=== PATIENT | male | born 1960 | race African-American/Black ===

== ENCOUNTER 2017-07-02 10:12 | Emergency (ER) | payer OTHER, MEDICAID ==
[~2017-07-02] VITALS: Ht 165.1 cm; Wt 77.0 kg
[2017-07-02] MEDS ORDERED: QUET200T PO (11:20)
[2017-07-02] MEDS ORDERED: ATEN50TA PO (11:20)
[2017-07-02] MEDS ORDERED: OXYCODONE HCL/ACETAMINOPHEN 5/325MG TABLET PO ONE (13:15)
[2017-07-02 15:01] VITALS: BP 185/118
== END 2017-07-02 15:51 | disposition home or self-care (01) ==
LOC: ER 10:12
DX: S70.02XA Contusion of left hip, initial encounter (principal); M16.11 Unilateral primary osteoarthritis, right hip; I10 Essential (primary) hypertension; F14.10 Cocaine abuse, uncomplicated; V03.99XA Pedestrian with other conveyance injured in collision with car, pick-up truck or van, unspecified whether traffic or nontraffic accident, initial encounter; Y93.55 Activity, bike riding; Y92.89 Other specified places as the place of occurrence of the external cause
CPT/HCPCS: 73502; 81025; 99284

== ENCOUNTER 2020-05-05 12:49 | Emergency (ER) | payer OTHER, MEDICAID ==
[~2020-05-05] VITALS: Ht 170.2 cm; Wt 85.0 kg
[~2020-05-05 12:49] MED LIST: ATEN50TA PO; QUET200T PO
[2020-05-05] MEDS ORDERED: ASPIRIN 81MG TABLET PO ONE (13:30)
[2020-05-05] MEDS: NITROGLYCERIN 0.4MG TABLET SL SL PRN ×3 (13:50→14:41)
[2020-05-05 13:59] LABS: CHLORIDE 102 mEq/L (98-107)
[2020-05-05 14:07] LABS: BASOPHILS % 0.7 % (0.0-2.0); EOSINOPHILS % 3.6 % (0.0-5.0); HEMATOCRIT. 44.4 % (42.0-52.0); HEMOGLOBIN. 15.6 g/dL (14.0-18.0); LYMPHOCYTES % 23.2 % (20.0-50.0); MEAN CORPUSCULAR HEMOGLOBIN 31.4 pg (28.0-32.0); MEAN CORPUSCULAR VOLUME 89.7 fL (80.0-94.0); MONOCYTES % 9.5 % (2.0-8.0); PLATELET 282 x1000/uL (130-400); RED BLOOD CELL COUNT 4.95 mill/uL (4.7-6.1); RED CELL DISTRIBUTION WIDTH 13.2 % (11.6-14.6)
[2020-05-05] MEDS ORDERED: MAGNESIUM/ALUMINUM HYDROXIDE/SIMETHICONE 30ML UDC PO ONE (14:45)
[2020-05-05 15:46] VITALS: BP 145/89
[2020-05-05] MEDS ORDERED: NITROGLYCERIN OINT 1GM/INCH UDPKT TD ONE (16:00)
== END 2020-05-05 17:00 | disposition short-term general hospital (02) ==
LOC: ER 12:49
DX: R07.89 Other chest pain (principal); R10.13 Epigastric pain; I10 Essential (primary) hypertension; E78.00 Pure hypercholesterolemia, unspecified; Z96.659 Presence of unspecified artificial knee joint
CPT/HCPCS: 36415; 71045; 80053; 83880; 84484; 85025; 99284

== ENCOUNTER 2021-07-05 19:48 | Emergency (ER) | payer OTHER, MEDICAID ==
[~2021-07-05] VITALS: Ht 167.6 cm; Wt 82.0 kg
[2021-07-06] MEDS ORDERED: KETOROLAC 60MG/2ML VIAL IM ONE (00:15)
[2021-07-06 04:00] VITALS: BP 152/95
[2021-07-06] MEDS ORDERED: IBUP-2029 MT (04:12)
== END 2021-07-06 04:30 | disposition home or self-care (01) ==
LOC: ER 19:48
DX: S20.212A Contusion of left front wall of thorax, initial encounter (principal); S40.011A Contusion of right shoulder, initial encounter; I10 Essential (primary) hypertension; Z96.659 Presence of unspecified artificial knee joint; V43.52XA Car driver injured in collision with other type car in traffic accident, initial encounter; Y93.89 Activity, other specified; Y92.488 Other paved roadways as the place of occurrence of the external cause
CPT/HCPCS: 71045; 71250; 73030; 73060; 93005; 96372; 99285; J1885

== ENCOUNTER 2024-04-15 01:24 | Emergency (ER) | payer OTHER, MEDICAID ==
[~2024-04-15] VITALS: Ht 180.3 cm; Wt 82.0 kg
[~2024-04-15 01:24] MED LIST changes: +AMLO10TA80 PO; +ASPI-1406 PO; +ATEN100T PO; -ATEN50TA PO; +CLOP-31 PO; +CRES10 PO; +PANT20TA17 PO; -QUET200T PO; +QUET400T12 PO; +T3 PO; +VERA120T90 PO
[2024-04-15 01:30] VITALS: O2SAT 95
[2024-04-15 02:31] LABS: BASOPHILS % 0.7 % (0.0-2.0); EOSINOPHILS % 1.4 % (0.0-5.0); HEMATOCRIT. 42.5 % (42.0-52.0); HEMOGLOBIN. 14.4 g/dL (14.0-18.0); LYMPHOCYTES % 12.4 % (20.0-50.0); MEAN CORPUSCULAR HEMOGLOBIN 30.8 pg (28.0-32.0); MEAN CORPUSCULAR HGB CONC 33.8 g/dL (31.0-37.0); MEAN CORPUSCULAR VOLUME 91.2 fL (80.0-94.0); MEAN PLATELET VOLUME 8.2 fl (7.4-10.4); MONOCYTES % 6.4 % (2.0-8.0); NEUTROPHILS % 79.1 % (40.0-76.0); PLATELET 363 x1000/uL (130-400); RED BLOOD CELL COUNT 4.66 mill/uL (4.7-6.1); RED CELL DISTRIBUTION WIDTH 13.8 % (11.6-14.6); WHITE BLOOD COUNT 11.5 x1000/uL (4.5-11.0)
[2024-04-15 02:36] LABS: CHLORIDE 104 mEq/L (98-107); POTASSIUM 3.7 mEq/L (3.5-5.1); SODIUM 138 mEq/L (136-145)
[2024-04-15 02:37] LABS: CALCIUM 8.8 mg/dL (8.7-10.4); CARBON DIOXIDE 26 mEq/L (21-32)
[2024-04-15 02:41] LABS: INR 0.9; PROTHROMBIN TIME 10.3 sec (9.6-11.0)
[2024-04-15 02:42] LABS: CREATININE 1.6 mg/dL (0.6-1.3); GLUCOSE 132 mg/dL (70-105); UREA NITROGEN BLOOD 13 mg/dL (9-23)
[2024-04-15] MEDS: ONDANSETRON HCL 4MG/2ML INJ IV NR (02:42)
[2024-04-15 02:43] LABS: TROPONIN I HIGH SENSITIVITY 5 ng/L (3.0-53)
[2024-04-15] MEDS: IOHEXOL-350 100 ML BOTTLE ONE (03:28)
[2024-04-15 03:38] LABS: ETHANOL BLOOD < 10 mg/dL (<10)
[2024-04-15] MEDS: ASPIRIN 325MG TABLET PO ONE (04:15)
[2024-04-15 06:19] VITALS: BP 126/81; PULSE 86; RESP 13; TEMP 98.1
== END 2024-04-15 06:31 | disposition short-term general hospital (02) ==
LOC: ER 01:24 → EDBEDREQ 05:46 → CANBEDREQ 05:51 → ER 06:31
DX: I63.9 Cerebral infarction, unspecified (principal); I10 Essential (primary) hypertension; E78.00 Pure hypercholesterolemia, unspecified; F14.10 Cocaine abuse, uncomplicated; Z79.899 Other long term (current) drug therapy; Z79.82 Long term (current) use of aspirin; Z86.73 Personal history of transient ischemic attack (TIA), and cerebral infarction without residual deficits
CPT/HCPCS: 80048; 80320; 83605; 85025; 85610; 84484; 36415; 71045; 70496; 70498; 70450; 93005; 96374; 99291; Q9967; J2405; G0480

== ENCOUNTER 2024-06-03 06:44 | Emergency (ER) | payer OTHER, MEDICAID ==
[~2024-06-03] VITALS: Ht 177.8 cm; Wt 85.0 kg
[2024-06-03 06:46] VITALS: O2SAT 98
[2024-06-03 07:18] LABS: BASOPHILS % 0.4 % (0.0-2.0); EOSINOPHILS % 3.3 % (0.0-5.0); HEMATOCRIT. 46.6 % (42.0-52.0); HEMOGLOBIN. 15.7 g/dL (14.0-18.0); LYMPHOCYTES % 12.8 % (20.0-50.0); MEAN CORPUSCULAR HEMOGLOBIN 30.9 pg (28.0-32.0); MEAN CORPUSCULAR HGB CONC 33.7 g/dL (31.0-37.0); MEAN CORPUSCULAR VOLUME 91.7 fL (80.0-94.0); MEAN PLATELET VOLUME 8.2 fl (7.4-10.4); MONOCYTES % 7.8 % (2.0-8.0); NEUTROPHILS % 75.7 % (40.0-76.0); PLATELET 372 x1000/uL (130-400); RED BLOOD CELL COUNT 5.08 mill/uL (4.7-6.1); RED CELL DISTRIBUTION WIDTH 13.7 % (11.6-14.6); WHITE BLOOD COUNT 10.6 x1000/uL (4.5-11.0)
[2024-06-03 07:21] LABS: POTASSIUM 3.3 mEq/L (3.5-5.1)
[2024-06-03 07:22] LABS: CALCIUM 9.6 mg/dL (8.7-10.4)
[2024-06-03 07:27] LABS: CREATININE 1.5 mg/dL (0.6-1.3)
[2024-06-03] MEDS: KETOROLAC 30MG/ML VIAL IV STA (07:42)
[2024-06-03] MEDS: MORPHINE SULFATE 4 MG/ML INJ (FOR IV/IM USE) IV ONE (08:20)
[2024-06-03] MEDS: FLUTICASONE PROPIONATE 50MCG/SPRAY BOTTLE BOTHNSTRLS STA (10:10)
[2024-06-03 10:20] VITALS: BP 118/80; PULSE 69; RESP 16; TEMP 36.50292; O2SAT 98
[2024-06-15] MEDS ORDERED: FLUT15.844 BOTHNSTRLS (06:12)
== END 2024-06-03 10:46 | disposition short-term general hospital (02) ==
LOC: ER 06:53 → CANBEDREQ 09:17 → ER 10:46
DX: J32.9 Chronic sinusitis, unspecified (principal); M79.18 Myalgia, other site; I10 Essential (primary) hypertension; F14.90 Cocaine use, unspecified, uncomplicated; Z86.73 Personal history of transient ischemic attack (TIA), and cerebral infarction without residual deficits; Z79.899 Other long term (current) drug therapy
CPT/HCPCS: 99285; 96374; 96375; 80048; 85025; 36415; J1885; J2270; C1893

== ENCOUNTER 2024-06-08 06:37 | Emergency (ER) | payer OTHER, MEDICAID ==
[~2024-06-08] VITALS: Ht 172.7 cm; Wt 73.0 kg
[2024-06-08 06:38] VITALS: TEMP 98.8; O2SAT 95
[2024-06-08] MEDS: IBUPROFEN 600MG TABLET PO ONE (06:45)
[2024-06-08] MEDS: HYDROCODONE/ACETAMINOPHEN 5/325MG TABLET PO ONE (09:55)
[2024-06-08 11:26] VITALS: BP 148/84; PULSE 78; RESP 16; O2SAT 99
[2024-06-08] MEDS ORDERED: NAPR-681 MT (21:20)
[2024-06-15] MEDS ORDERED: FLUT15.844 BOTHNSTRLS (06:12)
== END 2024-06-08 12:21 | disposition home or self-care (01) ==
LOC: ER 06:37
DX: S40.012A Contusion of left shoulder, initial encounter (principal); S70.02XA Contusion of left hip, initial encounter; I10 Essential (primary) hypertension; Z86.73 Personal history of transient ischemic attack (TIA), and cerebral infarction without residual deficits; W18.39XA Other fall on same level, initial encounter; Y93.89 Activity, other specified; Y92.89 Other specified places as the place of occurrence of the external cause; Y99.8 Other external cause status
CPT/HCPCS: 71045; 73030; 73502; 99284

== ENCOUNTER 2024-06-08 20:34 | Emergency (ER) | payer MEDICAID, OTHER ==
[~2024-06-08] VITALS: Ht 177.8 cm; Wt 80.0 kg
[2024-06-08 20:41] VITALS: O2SAT 99
[2024-06-08] MEDS ORDERED: NAPR-681 MT (21:20)
[2024-06-08] MEDS: KETOROLAC 15MG/ML VIAL IM ONE (22:11)
[2024-06-09] MEDS: HYDROCHLOROTHIAZIDE 25MG TABLET PO ONE (00:42)
[2024-06-09] MEDS: HYDRALAZINE 20MG/ML VIAL IV ONE (01:46)
[2024-06-09 05:57] VITALS: BP 157/104; PULSE 107; RESP 16; TEMP 36.78072; O2SAT 97
[2024-06-15] MEDS ORDERED: FLUT15.844 BOTHNSTRLS (06:12)
== END 2024-06-09 05:58 | disposition home or self-care (01) ==
LOC: ER 20:34
DX: M25.552 Pain in left hip (principal); I10 Essential (primary) hypertension; Z86.73 Personal history of transient ischemic attack (TIA), and cerebral infarction without residual deficits; Z79.899 Other long term (current) drug therapy
CPT/HCPCS: 99285; 96372; 96374; J1885; J0360

== ENCOUNTER 2024-06-30 14:02 | Emergency (ER) | payer MEDICAID, MEDICARE, OTHER ==
[~2024-06-30] VITALS: Ht 170.2 cm; Wt 72.6 kg
[~2024-06-30 14:02] MED LIST changes: +FLUT15.844 BOTHNSTRLS; +NAPR-681 MT
[2024-06-30 14:11] VITALS: O2SAT 97
[2024-06-30] MEDS: KETOROLAC 30MG/ML VIAL IM ONE (15:31)
[2024-06-30] MEDS: KETOROLAC 15MG/ML VIAL IV ONE (15:34)
[2024-06-30] MEDS: HYDROCODONE/ACETAMINOPHEN 7.5/325MG TABLET PO ONE (16:02)
[2024-06-30 21:39] VITALS: BP 148/88; PULSE 77; RESP 13; TEMP 36.66960; O2SAT 97
== END 2024-06-30 21:50 | disposition home or self-care (01) ==
LOC: ER 14:59
DX: S40.012A Contusion of left shoulder, initial encounter (principal); I10 Essential (primary) hypertension; E78.00 Pure hypercholesterolemia, unspecified; R51.9 Headache, unspecified; Z79.899 Other long term (current) drug therapy; Z79.82 Long term (current) use of aspirin; Z86.73 Personal history of transient ischemic attack (TIA), and cerebral infarction without residual deficits; Z98.890 Other specified postprocedural states; W18.2XXA Fall in (into) shower or empty bathtub, initial encounter; Y93.89 Activity, other specified; Y92.89 Other specified places as the place of occurrence of the external cause; Y99.8 Other external cause status
CPT/HCPCS: 73502; 73030; 70450; 72125; 96374; 99285; J1885; Z7610

== ENCOUNTER 2024-12-13 14:17 | Emergency (ER) | payer OTHER, MEDICAID ==
[~2024-12-13] VITALS: Ht 170.2 cm; Wt 75.0 kg
[~2024-12-13 14:17] MED LIST changes: +KEPP500 MT
[2024-12-13 14:28] VITALS: TEMP 36.8; O2SAT 100
[2024-12-13] MEDS ORDERED: HYDROCODONE/ACETAMINOPHEN 5/325MG TABLET PO ONE (16:45)
[2024-12-13 19:39] VITALS: O2SAT 98
[2024-12-13 20:33] VITALS: BP 153/80; PULSE 72; RESP 14
[2024-12-13] MEDS: HYDROCODONE/ACETAMINOPHEN 5/325MG TABLET PO NR (20:33)
[2024-12-13 20:58] LABS: BASOPHILS % 0.7 % (0.0-2.0); EOSINOPHILS % 2.8 % (0.0-5.0); HEMATOCRIT. 43.4 % (42.0-52.0); HEMOGLOBIN. 14.7 g/dL (14.0-18.0); LYMPHOCYTES % 16.6 % (20.0-50.0); MEAN CORPUSCULAR HEMOGLOBIN 30.5 pg (28.0-32.0); MEAN CORPUSCULAR HGB CONC 33.9 g/dL (31.0-37.0); MEAN CORPUSCULAR VOLUME 90.2 fL (80.0-94.0); MEAN PLATELET VOLUME 7.9 fl (7.4-10.4); MONOCYTES % 8.4 % (2.0-8.0); NEUTROPHILS % 71.5 % (40.0-76.0); PLATELET 466 x1000/uL (130-400); RED BLOOD CELL COUNT 4.82 mill/uL (4.7-6.1); RED CELL DISTRIBUTION WIDTH 13.2 % (11.6-14.6); WHITE BLOOD COUNT 11.4 x1000/uL (4.5-11.0)
[2024-12-13 21:07] LABS: CARBON DIOXIDE 26 mEq/L (21-32); CHLORIDE 102 mEq/L (98-107); POTASSIUM 4.2 mEq/L (3.5-5.1); SODIUM 137 mEq/L (136-145)
[2024-12-13 21:08] LABS: CALCIUM 9.3 mg/dL (8.7-10.4)
[2024-12-13 21:13] LABS: CREATININE 1.2 mg/dL (0.6-1.3); GLUCOSE 152 mg/dL (70-105); TROPONIN I HIGH SENSITIVITY 4 ng/L (3.0-53); UREA NITROGEN BLOOD 14 mg/dL (9-23)
[2024-12-13 21:14] LABS: ALANINE AMINOTRANSFERASE 48 IU/L (10-49); ASPARTATE AMINOTRANSFERASE 29 IU/L (<34)
[2024-12-13 21:15] LABS: ALBUMIN 4.1 g/dL (3.2-4.8); PROTEIN TOTAL 7.3 g/dL (6.0-8.3)
[2024-12-13] MEDS ORDERED: HYDR-4001 MT (21:35)
[2024-12-13] MEDS ORDERED: ACET-2708 MT (21:35)
== END 2024-12-13 23:13 | disposition home or self-care (01) ==
LOC: ER 14:44
DX: M25.552 Pain in left hip (principal); E78.00 Pure hypercholesterolemia, unspecified; I10 Essential (primary) hypertension; Z86.73 Personal history of transient ischemic attack (TIA), and cerebral infarction without residual deficits; Z79.899 Other long term (current) drug therapy; Z96.641 Presence of right artificial hip joint; Z79.82 Long term (current) use of aspirin; Z79.1 Long term (current) use of non-steroidal anti-inflammatories (NSAID); Z79.02 Long term (current) use of antithrombotics/antiplatelets; W06.XXXA Fall from bed, initial encounter; Y93.89 Activity, other specified; Y92.89 Other specified places as the place of occurrence of the external cause; Y99.8 Other external cause status
CPT/HCPCS: 36415; 71045; 73502; 80053; 84484; 85025; 93005; 99285

== ENCOUNTER 2025-01-07 10:24 | Emergency (ER) | payer OTHER, MEDICAID ==
[~2025-01-07] VITALS: Ht 160 cm; Wt 82.0 kg
[~2025-01-07 10:24] MED LIST changes: +ACET-2708 MT; +HYDR-4001 MT
[2025-01-07 10:30] VITALS: O2SAT 99
[2025-01-07] MEDS: LABETALOL 5MG/ML 4ML INJ IV ONE (11:32)
[2025-01-07 11:35] LABS: BASOPHILS % 0.8 % (0.0-2.0); EOSINOPHILS % 3.5 % (0.0-5.0); HEMATOCRIT. 43.4 % (42.0-52.0); HEMOGLOBIN. 14.4 g/dL (14.0-18.0); LYMPHOCYTES % 20.4 % (20.0-50.0); MEAN CORPUSCULAR HGB CONC 33.1 g/dL (31.0-37.0); MEAN CORPUSCULAR VOLUME 90.7 fL (80.0-94.0); MEAN PLATELET VOLUME 8.1 fl (7.4-10.4); MONOCYTES % 8.6 % (2.0-8.0); NEUTROPHILS % 66.7 % (40.0-76.0); PLATELET 425 x1000/uL (130-400); RED BLOOD CELL COUNT 4.79 mill/uL (4.7-6.1); RED CELL DISTRIBUTION WIDTH 13.3 % (11.6-14.6)
[2025-01-07 11:41] LABS: CHLORIDE 105 mEq/L (98-107); POTASSIUM 3.8 mEq/L (3.5-5.1); SODIUM 141 mEq/L (136-145)
[2025-01-07 11:42] LABS: CALCIUM 9.5 mg/dL (8.7-10.4); CARBON DIOXIDE 29 mEq/L (21-32)
[2025-01-07 11:47] LABS: CREATININE 1.2 mg/dL (0.6-1.3); GLUCOSE 104 mg/dL (70-105)
[2025-01-07 11:48] LABS: ETHANOL BLOOD < 10 mg/dL (<10); TROPONIN I HIGH SENSITIVITY 7 ng/L (3.0-53); UREA NITROGEN BLOOD 13 mg/dL (9-23)
[2025-01-07 11:54] LABS: INR 0.9; PROTHROMBIN TIME 10.2 sec (9.6-11.0)
[2025-01-07 13:55] LABS: CLARITY URINE CLEAR (CLEAR); COLOR URINE YELLOW (YELLOW); GLUCOSE URINE NEGATIVE (NEGATIVE); KETONES URINE NEGATIVE (NEGATIVE); LEUKOCYTE ESTERASE URINE NEGATIVE (NEGATIVE); NITRITE URINE NEGATIVE (NEGATIVE); OCCULT BLOOD URINE NEGATIVE (NEGATIVE); PROTEIN URINE NEGATIVE (NEGATIVE)
[2025-01-07 14:55] LABS: *AMPHETAMINES SCREEN URINE NEGATIVE (NEGATIVE); *BARBITURATES SCREEN URINE NEGATIVE (NEGATIVE); *BENZODIAZEPINES SCREEN URINE NEGATIVE (NEGATIVE); *COCAINE SCREEN URINE PRESUMPTIVE POSITIVE (NEGATIVE); CANNABINOID URINE SCREEN NEGATIVE (NEGATIVE); ECSTASY MDMA SCREEN URINE NEGATIVE (NEGATIVE); METHADONE URINE SCREEN NEGATIVE (NEGATIVE); OPIATES URINE SCREEN PRESUMPTIVE POSITIVE (NEGATIVE); PHENCYCLIDINE URINE SCREEN NEGATIVE (NEGATIVE)
[2025-01-07 15:11] VITALS: TEMP 36.9
[2025-01-07 15:29] VITALS: BP 179/86; PULSE 78; RESP 16; O2SAT 100
== END 2025-01-07 15:56 | disposition short-term general hospital (02) ==
LOC: ER 10:24 → CANBEDREQ 13:23 → ER 15:56
DX: R62.7 Adult failure to thrive (principal); F14.90 Cocaine use, unspecified, uncomplicated; I10 Essential (primary) hypertension; Z91.148 Patient's other noncompliance with medication regimen for other reason; Z86.59 Personal history of other mental and behavioral disorders; Z86.73 Personal history of transient ischemic attack (TIA), and cerebral infarction without residual deficits
CPT/HCPCS: 80305; 80048; 81003; 80320; 83735; 85025; 85610; 86850; 86900; 86901; 84484; 36415; 93005; 96374; 99285; J3490; A4606; G0480

== ENCOUNTER 2025-07-21 02:04 | Emergency (ER) | payer OTHER, MEDICAID ==
[~2025-07-21] VITALS: Ht 175.3 cm; Wt 68.0 kg
[~2025-07-21 02:04] MED LIST changes: +ALBU2.5V13 IH; +ASPI-1497 MT; +BENZ100C86 PO; +FOLI-43 MT; +GABA-1180 PO; -NAPR-681 MT; -PANT20TA17 PO; -T3 PO; -VERA120T90 PO
[2025-07-21 02:05] VITALS: O2SAT 99
[2025-07-21] MEDS: ONDANSETRON HCL 4MG/2ML INJ IV ONE (03:57)
[2025-07-21] MEDS: MORPHINE SULFATE 4 MG/ML INJ (FOR IV/IM USE) IV ONE (03:58)
[2025-07-21 04:48] LABS: BASOPHILS % 0.9 % (0.0-2.0); EOSINOPHILS % 3.4 % (0.0-5.0); HEMATOCRIT. 44.9 % (42.0-52.0); HEMOGLOBIN. 15.3 g/dL (14.0-18.0); LYMPHOCYTES % 18.7 % (20.0-50.0); MEAN PLATELET VOLUME 8.3 fl (7.4-10.4); MONOCYTES % 6.6 % (2.0-8.0); NEUTROPHILS % 70.4 % (40.0-76.0); PLATELET 334 x1000/uL (130-400); RED BLOOD CELL COUNT 5.14 mill/uL (4.7-6.1); RED CELL DISTRIBUTION WIDTH 15.4 % (11.6-14.6)
[2025-07-21 04:58] LABS: CREATININE 1.2 mg/dL (0.6-1.3); UREA NITROGEN BLOOD 9 mg/dL (9-23)
[2025-07-21 05:00] LABS: TROPONIN I HIGH SENSITIVITY 7 ng/L (3.0-53)
[2025-07-21] MEDS: ACETAMINOPHEN WITH CODEINE 120-12MG/5ML UDC PO ONE (05:34)
[2025-07-21 06:55] LABS: TROPONIN I HIGH SENSITIVITY 6 ng/L (3.0-53)
[2025-07-21 07:41] VITALS: BP 144/85; PULSE 70; RESP 12; TEMP 36.6; O2SAT 99
[2025-07-28] MEDS ORDERED: METH4TAB95 MT (12:33)
[2025-07-28] MEDS ORDERED: AMOX1TAB16 MT (12:33)
== END 2025-07-21 07:42 | disposition home or self-care (01) ==
LOC: ER 02:04 → CANBEDREQ 07:19 → ER 07:42
DX: G40.909 Epilepsy, unspecified, not intractable, without status epilepticus (principal); E78.00 Pure hypercholesterolemia, unspecified; G31.9 Degenerative disease of nervous system, unspecified; I10 Essential (primary) hypertension; R06.02 Shortness of breath; I44.4 Left anterior fascicular block; I67.82 Cerebral ischemia; Z79.02 Long term (current) use of antithrombotics/antiplatelets; Z79.82 Long term (current) use of aspirin; Z79.899 Other long term (current) drug therapy
CPT/HCPCS: 99285; 93970; 96374; 70450; 71045; 96375; 80048; 83880; 85025; 84484; 36415; 93005; J2405; J2270